=== PATIENT | female | born 1960 | race Hispanic/Latino ===

== ENCOUNTER 2024-09-10 12:27 | Emergency (ER) | payer MEDICARE ==
[~2024-09-10] VITALS: Ht 157.5 cm; Wt 72.6 kg
[2024-09-10 14:34] LABS: BASOPHILS # (AUTO) 0.1 (0.0-0.1); BASOPHILS % 0.5 % (0.0-1.0); EOSINOPHILS % 0.3 % (0.0-6.0); HEMATOCRIT 44.1 % (34.2-44.1); HEMOGLOBIN 13.7 g/dL (12.0-16.0); LYMPHOCYTES # (AUTO) 1.9 (1.0-3.2); LYMPHOCYTES % 16.2 % (18.0-39.1); MEAN CORPUSCULAR HEMOGLOBIN 30.9 pg (28-32); MEAN CORPUSCULAR HGB CONC 31.1 g/dL (31-35); MEAN CORPUSCULAR VOLUME 99.5 fL (81-99); MONOCYTES # (AUTO) 0.8 (0.2-0.8); MONOCYTES % 6.3 % (4.4-11.3); NEUTROPHILS % 76.1 % (38.7-80.0); PLATELET COUNT 252 x10e3/uL (140-360); RED BLOOD COUNT 4.43 x10e6/uL (3.6-5.1); RED CELL DISTRIBUTION WIDTH 12.7 % (11.7-14.4); WHITE BLOOD COUNT 11.82 x10e3/uL (4.8-10.8)
[2024-09-10 14:39] LABS: INR 0.94; PARTIAL THROMBOPLASTIN TIME 24.1 seconds (23.8-35.5); PROTHROMBIN TIME 13.1 seconds (11.9-14.5)
[2024-09-10 14:47] LABS: ALANINE AMINOTRANSFERASE 18 IU/L (0-55); ALBUMIN 3.9 g/dL (3.5-5.0); ALBUMIN/GLOBULIN RATIO 1.2 (0.8-2.0); ALKALINE PHOSPHATASE 79 IU/L (40-150); ANION GAP 17.3 mmol/L (8-16); BILIRUBIN,TOTAL 1.3 mg/dL (0.2-1.2); BLOOD UREA NITROGEN 15 mg/dL (7-26); BUN/CREATININE RATIO 18 (6-25); CALCIUM 9.3 mg/dL (8.4-10.2); CARBON DIOXIDE 21 mmol/L (22-29); CHLORIDE 110 mmol/L (98-107); CREATINE KINASE 144 IU/L (29-168); CREATININE, SERUM 0.84 mg/dL (0.57-1.11); EST GLOMERULAR FILTRATION RATE 77 ML/MIN (>=60); GLUCOSE 127 mg/dL (74-118); MAGNESIUM 2.2 MG/DL (1.3-2.1); POTASSIUM 4.3 mmol/L (3.5-5.1); SODIUM 144 mmol/L (136-145); TOTAL PROTEIN 7.1 g/dL (6.5-8.1)
[2024-09-10 14:56] LABS: TROPONIN I < 0.001 ng/mL (0-0.300)
[2024-09-10] MEDS: MECLIZINE HCL 12.5 MG TAB PO ONE (15:11)
[2024-09-10] MEDS: SODIUM CHLORIDE 0.9% 1000ML 1,000 ML IV STA (15:12)
[2024-09-10] MEDS ORDERED: MECLIZINE HCL25 MG PO (15:54)
[2024-09-10] MEDS: ONDANSETRON HCL INJ 2MG/ML 2ML 2 MG/ML VIAL IV STA (16:26)
[2024-09-10 16:31] VITALS: PULSE 82; RESP 18; TEMP 98.7; O2SAT 100
[2024-09-10] MEDS ORDERED: ONDANSETRON ODT4 MG PO (16:32)
== END 2024-09-10 16:36 | disposition home or self-care (01) ==
LOC: ER 13:58
DX: R42 Dizziness and giddiness (principal); R11.2 Nausea with vomiting, unspecified; I10 Essential (primary) hypertension; E11.65 Type 2 diabetes mellitus with hyperglycemia; E78.5 Hyperlipidemia, unspecified
CPT/HCPCS: 36415; 70450; 71045; 80053; 82550; 83735; 84484; 85025; 85610; 85730; 93005; 99284; J2405; J7030; J8597